=== PATIENT | female | born 1970 | race Native Hawaiian/Other Pacific Islander ===

== ENCOUNTER → 2016-09-14 | Outpatient (CLI) | payer BC ==
--- NOTE | 2016-09-15 08:29 | MM ---
Reason for exam: additional evaluation requested from prior study. Last mammogram was performed 1 year and 6 months ago. History: Patient has history of high-risk lesion on a previous biopsy at age 44. Family history of breast cancer in maternal aunt at age 40 and breast cancer in maternal aunt at age 52. High risk excisional biopsy of the left breast, 2016. Took hormonal contraceptives for 4 years. Physical Findings: Nurse did not find any significant physical abnormalities on exam. MG Diagnostic Mammo w CAD DEVONTE Bilateral CC and MLO view(s) were taken. Prior study comparison: March 25, 2015, left breast MG ductogram single duct LT. March 21, 2015, bilateral MR breast bilat wo/w con. There are scattered fibroglandular densities. No significant new findings when compared with previous films. These results were verbally communicated with the patient and result sheet given to the patient on 09/14/16. ASSESSMENT: Benign, BI-RAD 2 RECOMMENDATION: Routine screening mammogram of both breasts in 1 year. Manage patient on a clinical basis with regard to nipple discharge.
== END | disposition home or self-care (01) ==
LOC: RADMAMWWP 09:39
PROVIDERS: ATTEND Internal Medicine Geriatric Medicine
DX: R92.2 Inconclusive mammogram (principal)

== ENCOUNTER → 2019-01-09 | Outpatient (CLI) | payer BC ==
--- NOTE | 2019-01-10 13:37 | ECHOS ---
STRESS ECHOCARDIOGRAM DATE OF SERVICE: 01/09/2019 INDICATIONS: Chest pain. MEDICATIONS: BASELINE HEART RATE: 78 BASELINE BLOOD PRESSURE: 131/90 MAXIMUM HEART RATE: 153 MAXIMUM BLOOD PRESSURE: 179/89 85% MPHR: 145 100% MPHR: 170 METS: 11.7 MAXIMUM STAGE REACHED: IV TOTAL EXERCISE TIME: 10 minutes. CLINICAL INFORMATION: Patient was exercised for a total period of 10 minutes. The peak heart rate of 153 was achieved. Maximum blood pressure of 179/89 mmHg was noted. Patient did not complain of any chest pain during the test. Resting EKG shows normal sinus rhythm with normal WV interval and QRS duration and normal ST-T waves. No ST-segment depression suggestive of ischemia is noted. The baseline echocardiographic images reveals normal left ventricular chamber size with normal left ventricular systolic function. In the immediate postexercise period, normal increase in the wall thickness and contractility is noted. FINAL IMPRESSION: This stress echocardiographic study is negative for stress-induced ischemia. EKG portion of the stress test is not suggestive of ischemia. Patient's exercise tolerance is normal. MMODL / IJN: [id number] /
== END | disposition home or self-care (01) ==
LOC: RADNMMAIN 09:40
PROVIDERS: ATTEND Internal Medicine Geriatric Medicine
DX: R07.9 Chest pain, unspecified (principal)
CPT/HCPCS: 93351; Q9950

== ENCOUNTER → 2020-01-21 | Outpatient (CLI) | payer BC ==
--- NOTE | 2020-01-21 14:22 | CT ---
EXAMINATION TYPE: CT sinus wo con DATE OF EXAM: 01/21/2020 COMPARISON: None HISTORY: Chronic sinusitis CT DLP: 609.4 mGycm. Automated Exposure Control for Dose Reduction was Utilized. TECHNIQUE: CT scan of the sinuses is performed without contrast, axial images are obtained, coronal r eformatted images are also reviewed. FINDINGS: There are bilateral endoscopic sinus surgery postoperative changes including bilateral maxillary antr ostomies. The antrostomy defects are patent with mucosal thickening. No mucosal thickening of the max illary sinuses. There is mucosal thickening of the remaining ethmoid air cells. Hypopneumatization of the bilateral frontal sinuses with no mucosal thickening. There is occlusion of the bilateral fronto ethmoidal recesses. There is mucosal thickening of the left sphenoid sinus. There is occlusion of the bilateral sphenoid ostia. Nasal septum is midline. There is narrowing of the inferior nasal passage due to the inferior turbina maximus. There is paradoxical curvature of the right middle turbinate. Visualized portion of mastoid air cells show no abnormal opacification. The globes are grossly symme tric bilaterally. IMPRESSION: 1. Bilateral endoscopic sinus postsurgical changes. 2. Paranasal mucosal thickening as above with occlusion of the bilateral frontoethmoidal recesses and bilateral sphenoid ostia.
== END | disposition home or self-care (01) ==
LOC: RADCTMAIN 08:14
PROVIDERS: ATTEND Otolaryngology
DX: J34.89 Other specified disorders of nose and nasal sinuses (principal); J32.9 Chronic sinusitis, unspecified; Z98.890 Other specified postprocedural states
CPT/HCPCS: 70486

== ENCOUNTER 2020-02-13 09:16 | Day surgery (SDC) | payer BC ==
[2020-02-11 14:41] VITALS: BMI 29.8
[~2020-02-13 09:16] MED LIST: CLINDAMYCIN 600 MG in DEXTROSE 5% IN WATER 50 ML IVPB ONE; DEXAMETHASONE SOD PHOSPHATE 4 MG/ML 1 ML VIAL IV ONE; FAMOTIDINE 20 MG/2 ML VIAL IV ONE; ONDANSETRON 4 MG/2 ML VIAL IVP ONE
[2020-02-13] MEDS: LACTATED RINGERS 1,000 ML IV SCH ×2 (10:30→10:31)
[2020-02-13] MEDS: LIDOCAINE 1% (10MG/ML) FOR IV START INTRADERMA PRN (10:30)
[2020-02-13] MEDS ORDERED: hydrALAZINE HCL 20 MG/ML 1 ML VIAL IVP ONE (10:35)
[2020-02-13] MEDS: SCOPOLAMINE 1.5MG/72HR PATCH TRANSDERM ONE (10:36)
[2020-02-13] MEDS: OXYMETAZOLINE 0.05% NASL SPRAY 1 SPRAY BOTTLE NASAL ONE ×5 (10:38→11:02)
[2020-02-13] MEDS ORDERED: ONDANSETRON 4 MG/2 ML VIAL ONE (10:48)
[2020-02-13] MEDS ORDERED: PROPOFOL 10 MG/ML 20 ML VIAL IV ONE (11:47)
[2020-02-13] MEDS ORDERED: ESMOLOL 100 MG/10 ML VIAL ONE (11:47)
[2020-02-13] MEDS ORDERED: MIDAZOLAM 2 MG/2 ML VIAL ONE (11:47)
[2020-02-13] MEDS ORDERED: fentaNYL (PF) 50 MCG/ML 2 ML AMP ONE (11:47)
[2020-02-13] MEDS ORDERED: SUCCINYLCHOLINE CHLORIDE 100 MG/5 ML SYR IV ONE (11:47)
[2020-02-13] MEDS ORDERED: LIDOCAINE 1% INJ 10MG/ML (20 ML MDV) ONE (11:47)
[2020-02-13] MEDS ORDERED: LIDOCAINE 1%-EPI 1:100,000 20 ML VIAL SUBMUCOSAL ONE (12:04)
--- NOTE | 2020-02-13 12:39 | P.OP ---
Date of Procedure: 02/13/20 Preoperative Diagnosis: Chronic sinusitis Inferior turbinate hypertrophy Postoperative Diagnosis: Same Procedure(s) Performed: Outfractured and submucous resection of the inferior turbinates Bilateral endoscopic sinus surgery including bilateral anterior and posterior ethmoidectomy bilateral frontal sinusotomy and bilateral sphenoidotomy Anesthesia: ANUJA Surgeon: Randolph Weems Estimated Blood Loss (ml): 5 Pathology: other (Sinus contents) Condition: stable Disposition: PACU Indications for Procedure: This is a 49-year-old white female who has a past history of endoscopic sinus surgery and septoplasty. She had done well although for the last several months has had some recurring issues with the sinuses and nasal congestion. Computed tomography scan showed evidence of chronic sinusitis and some residual ethmoid air cells as well as the sphenoid sinus especially on the left with evidence of previous surgery in the maxillary ostia which were patent as well as inferior turbinate hypertrophy Operative Findings: Mild mucosal thickening of residual ethmoid air cells as well as the sphenoid and frontal sinuses with inferior turbinate hypertrophy bilaterally there were only a couple of residual ethmoid air cells on each side Description of Procedure: The patient brought in the operative suite and placed in a supine position. The patient underwent induction of general anesthesia with oral endotracheal intubation without difficulty. Patient was prepped and draped in usual aseptic fashion with the orbits in the operating field for monitoring throughout the case and the computed tomography scan on the computer screen for review throughout the case. 1% lidocaine with 1-100,000 epinephrine was infused sub mucosally lateral nasal wall and anterior tips the middle turbinates bilaterally. This taking vasoconstrictive effect the inferior turbinates were infractured with the Scott elevator partial submucous resection of the inferior turbinates were performed with microdebrider 2 mm blade to remove a portion of the inferior turbinate bone and submucosal soft tissue. The inferior turbinates were then outfractured with Scott elevator. Full 0 endoscopic examination is performed bilaterally. Beginning on the left the middle turbinate was medialized minimally although was in good position overall already. The maxillary ostium was widely patent and the maxillary sinus. Within normal limits as far as the mucosa. There were a couple of residual ethmoid air cells which were opened with minimal mucosal thickening. The frontal sinus ostium was mildly narrowed and this was opened with a curved probe and curved suction and the frontal sinus explored with a 70 endoscope. The sphenoid sinus ostium was then opened with straight suction and straight Blakesley forceps with the sphenoid sinus explored with 0 endoscope. This was completed attention was turned to the right where the procedures were followed as they were on the left including medialization the middle turbinate maxillary sinus exploration completion of ethmoidectomy frontal sinusotomy with exploration and sphenoidotomy with exploration also. A pledget of xerogel was placed under direct visualization in the bilateral ethmoid cavities and the patient was suctioned in oral gastric fashion and the patient was allowed to emerge from general anesthesia having tolerated procedure well was excised in the operating suite and transferred to postop recovery area in satisfactory condition.
[2020-02-13 12:49] VITALS: TEMP 97
[2020-02-13 13:03] VITALS: RESP 16
[2020-02-13] MEDS ORDERED: LACTATED RINGERS 1,000 ML IV ONE (14:11)
[2020-02-13 14:27] VITALS: PULSE 70
[2020-02-13] MEDS ORDERED: HYDROcodone/APAP 5-325MG 1 EACH TAB ONE (14:37)
[2020-02-13] MEDS ORDERED: HYDROcodone/APAP 5-325MG 1 EACH TAB PO ONE (14:39)
[2020-02-13 15:10] VITALS: BP 150/77
== END 2020-02-13 15:13 | disposition home or self-care (01) ==
LOC: OR 09:16
PROVIDERS: ATTEND Otolaryngology
DX: J32.9 Chronic sinusitis, unspecified (principal); J34.3 Hypertrophy of nasal turbinates; K21.9 Gastro-esophageal reflux disease without esophagitis; G43.909 Migraine, unspecified, not intractable, without status migrainosus; E66.9 Obesity, unspecified; Z68.30 Body mass index [BMI] 30.0-30.9, adult; K92.9 Disease of digestive system, unspecified; Z98.890 Other specified postprocedural states; Z98.891 History of uterine scar from previous surgery; Z82.49 Family history of ischemic heart disease and other diseases of the circulatory system; Z82.3 Family history of stroke; Z82.61 Family history of arthritis; Z83.3 Family history of diabetes mellitus; Z83.42 Family history of familial hypercholesterolemia; Z83.79 Family history of other diseases of the digestive system; Z82.1 Family history of blindness and visual loss; Z79.1 Long term (current) use of non-steroidal anti-inflammatories (NSAID); Z79.899 Other long term (current) drug therapy; Z88.6 Allergy status to analgesic agent; Z88.8 Allergy status to other drugs, medicaments and biological substances; Z91.048 Other nonmedicinal substance allergy status
CPT/HCPCS: 81025; 88305; 31276; 31257; 30140; J2250; J2405; J0690; J2001; J3010; J0330; J2704

== ENCOUNTER 2021-05-09 06:52 | Emergency (ER) | payer BC ==
[2021-05-09 06:58] VITALS: BP 180/95; PULSE 77; RESP 17; TEMP 98.1
[2021-05-09] MEDS ORDERED: FLUORESCEIN STRIPS 1 MG STRIP LEFT EYE STA (07:21)
[2021-05-09] MEDS ORDERED: PROPARACAINE 0.5% OPHTH DROPS 15 ML BTL LEFT EYE STA (07:22)
[2021-05-09] MEDS ORDERED: ERYTHROMYCIN 5 MG/GM OPHTH OINT 1 GM TUBE LEFT EYE STA (07:57)
[2021-05-09] MEDS ORDERED: DIPH,PERTUS(ACELL)TETVAC-LF 0.5 ML VIAL IM ONE (08:03)
--- NOTE | 2021-05-09 08:03 | ED ---
General Adult HPI - General Chief complaint: Eye Problems Stated complaint: L eye injury Time Seen by Provider: 05/09/21 07:21 Source: patient Mode of arrival: ambulatory - History of Present Illness Initial comments: 50-year-old female presents to the emergency room for a chief complaint of left eye injury. Patient states about an hour ago she was lying in bed when her puppy lunged at her and hit her left eye. Patient states it hurts to open her eye. States she feels that her eye itself is scratched. She is not up-to-date on tetanus.she does not wear contacts she denies any significant visual changes just states that since it is watery and painful it is somewhat blurry. Patient has no other complaints at this time including shortness of breath, chest pain, abdominal pain, nausea or vomiting, headache, or visual changes. - Related Data Previous Rx's Medication Instructions Recorded Erythromycin Ophth Oint [Romycin 1 applic LEFT EYE QID 7 Days #3.5 05/09/21 Ophth Oint] gm Allergies Allergy/AdvReac Type Severity Reaction Status Date / Time ketorolac tromethamine Allergy Severe tongue and Verified 05/09/21 06:57 [From Toradol] lip swelling,SOB STEROIDS Allergy Severe elevated BP Uncoded 05/09/21 06:57 Review of Systems ROS Statement: Those systems with pertinent positive or pertinent negative responses have been documented in the HPI. ROS Other: All systems not noted in ROS Statement are negative. Past Medical History Past Medical History: CVA/TIA, Fibromyalgia, GERD/Reflux, Mitral Valve Prolapse (MVP), Rheumatoid Arthritis (RA) Additional Past Medical History / Comment(s): Migraines, TIA 2006, heart murmur, Mitral valve regurgitation, varicose veins, hiatal hernia, Sjogrens syndrome, Raynauds, Lupus, hx kidney stones. History of Any Multi-Drug Resistant Organisms: None Reported Past Surgical History: Breast Surgery, Section, Cholecystectomy, Tonsillectomy, Tubal Ligation Additional Past Surgical History / Comment(s): Sinus/deviated septum surgery, left breast lumpectomy. Past Anesthesia/Blood Transfusion Reactions: Previous Problems w/ Anesthesia, Postoperative Nausea & Vomiting (PONV) Additional Past Anesthesia/Blood Transfusion Reaction / Comment(s): "Had to be intubated emergently during breast lumpectomy surgery." "Severe PONV, Zofran works well for me." Past Psychological History: No Psychological Hx Reported Smoking Status: Former smoker Past Alcohol Use History: Occasional Past Drug Use History: None Reported - Past Family History Mother Family Medical History: No Reported History General Exam General appearance: alert, in no apparent distress Head exam: Present: atraumatic Eye exam: Present: PERRL, EOMI, conjunctival injection (Patient has mild conjunctival injection noted). Absent: scleral icterus, periorbital swelling, periorbital tenderness ENT exam: Present: normal exam, mucous membranes moist Neck exam: Present: normal inspection, full ROM. Absent: tenderness, meningismus Respiratory exam: Present: normal lung sounds bilaterally. Absent: respiratory distress, wheezes Cardiovascular Exam: Present: regular rate, normal rhythm, normal heart sounds Course Vital Signs 05/09/21 06:53 Temperature 98.1 F Pulse Rate 77 Respiratory 17 Rate Blood Pressure 180/95 O2 Sat by Pulse 100 Oximetry Medical Decision Making - Medical Decision Making Patient has some mild subconjunctival injection. Proparacaine was administered and patient had complete resolution of symptoms for the duration of action. The eye was evaluated with Wood's lamp and fluorescein stain. There is multiple ab rasions noted across the center of the cornea. No evidence of foreign body. Patient given erythromycin ointment and updated on tetanus. Patient has her own cd storage and materials make up helper that she will follow up with on Tuesday. She will return here for any worsening symptoms. Disposition Clinical Impression: Corneal abrasion Disposition: HOME SELF-CARE Condition: Good Instructions (If sedation given, give patient instructions): Corneal Abrasion (ED) Additional Instructions: Please use antibiotic ointment as directed. Follow-up with your cd storage and materials make up helper. If you have any worsening symptoms return to the emergency room. Prescriptions: Erythromycin Ophth Oint [Romycin Ophth Oint] 1 applic LEFT EYE QID 7 Days #3.5 gm Is patient prescribed a controlled substance at d/c from ED?: No Referrals: Eris Leal MD [Primary Care Provider] - 1-2 days Time of Disposition: 08:02
== END 2021-05-09 08:35 | disposition home or self-care (01) ==
LOC: EC 06:52
DX: S05.02XA Injury of conjunctiva and corneal abrasion without foreign body, left eye, initial encounter (principal); Z87.891 Personal history of nicotine dependence; X58.XXXA Exposure to other specified factors, initial encounter
CPT/HCPCS: 90471; 90715; 99283

== ENCOUNTER → 2022-12-14 | Outpatient (CLI) | payer SELFPAY | END | disposition home or self-care (01) | LOC: LABWHC1 11:27 | PROVIDERS: ATTEND Ophthalmology | DX: M31.6 Other giant cell arteritis (principal) | CPT/HCPCS: 36415; 85652; 86140 ==